=== PATIENT | female | born 1985 | race American Indian/Alaskan Native ===

== ENCOUNTER 2019-05-26 16:52 | Emergency (ER) | payer SELFPAY ==
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
[2019-05-26 17:52] VITALS: BP 138/93
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
[2019-05-26] MEDS ORDERED: IBUPROFEN 600 MG TAB PO ONE (20:21)
[2019-05-26] MEDS ORDERED: HYDROcodone/ACETAMINOPHEN 5-325 MG TAB PO ONE (20:21)
[2019-05-26] MEDS ORDERED: ONDANSETRON 4 MG ODT TAB PO ONE (20:21)
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
== END 2019-05-26 20:59 | disposition home or self-care (01) ==
LOC: ED 16:52
DX: S29.011A Strain of muscle and tendon of front wall of thorax, initial encounter (principal); M62.838 Other muscle spasm; M62.830 Muscle spasm of back; F17.200 Nicotine dependence, unspecified, uncomplicated; J45.909 Unspecified asthma, uncomplicated; V49.59XA Passenger injured in collision with other motor vehicles in traffic accident, initial encounter; Y93.89 Activity, other specified; Y92.410 Unspecified street and highway as the place of occurrence of the external cause; Y99.8 Other external cause status
CPT/HCPCS: 72040; Q0162